=== PATIENT | male | born 1975 | race Caucasian/White ===

== ENCOUNTER → 2022-02-28 | Outpatient (CLI) | payer OTHER | END | disposition home or self-care (01) | LOC: RESCLI 04:18 | PROVIDERS: ATTEND Internal Medicine | DX: E78.2 Mixed hyperlipidemia (principal); Z00.00 Encounter for general adult medical examination without abnormal findings; Z71.89 Other specified counseling ==

== ENCOUNTER → 2022-03-23 | Outpatient (CLI) | payer OTHER | END | disposition home or self-care (01) | LOC: RESCLI 11:32 | PROVIDERS: ATTEND Family Medicine | DX: L23.7 Allergic contact dermatitis due to plants, except food (principal); E78.2 Mixed hyperlipidemia; Z79.899 Other long term (current) drug therapy; Z12.11 Encounter for screening for malignant neoplasm of colon ==

== ENCOUNTER → 2022-07-04 | Day surgery (SDC) | payer OTHER ==
[~2022-07-04] MED LIST: SIMVASTATIN20 MG PO
[2022-07-04 06:48] VITALS: BP 147/87
[2022-07-04 07:52] VITALS: BP 133/88
[2022-07-04 08:07] VITALS: BP 114/77
[2022-07-04 08:19] VITALS: BP 118/84
== END | disposition home or self-care (01) ==
LOC: SDC 06-30 08:00
PROVIDERS: ATTEND Surgery
DX: Z12.11 Encounter for screening for malignant neoplasm of colon (principal); K57.30 Diverticulosis of large intestine without perforation or abscess without bleeding; I10 Essential (primary) hypertension; E78.00 Pure hypercholesterolemia, unspecified; Z80.0 Family history of malignant neoplasm of digestive organs; Z79.899 Other long term (current) drug therapy

== ENCOUNTER → 2023-03-23 | Outpatient (CLI) | payer OTHER | END | disposition home or self-care (01) | LOC: RESCLI | PROVIDERS: ATTEND Internal Medicine | DX: E78.5 Hyperlipidemia, unspecified (principal); Z98.890 Other specified postprocedural states; Z79.899 Other long term (current) drug therapy ==

== ENCOUNTER → 2024-03-07 | Outpatient (CLI) | payer OTHER | END | disposition home or self-care (01) | LOC: RESCLI 12:50 | PROVIDERS: ATTEND Internal Medicine | DX: Z00.00 Encounter for general adult medical examination without abnormal findings (principal); E78.5 Hyperlipidemia, unspecified; F10.90 Alcohol use, unspecified, uncomplicated; E66.9 Obesity, unspecified; Z79.899 Other long term (current) drug therapy; Z98.890 Other specified postprocedural states ==

== ENCOUNTER → 2024-03-08 | Outpatient (CLI) | payer OTHER ==
[2024-03-08 07:47] LABS: BASO # 0.1 10*3/uL (0.0-0.1); EOS # 0.2 10*3/uL (0.0-0.4); EOS % 2.5 % (1.0-4.0); HEMATOCRIT 45.2 % (42.0-52.0); LYMPH # 2.1 10*3/uL (1.3-4.4); LYMPH % 34.3 % (27.0-41.0); MEAN CELL VOLUME 89.9 fl (80.0-94.0); MEAN CORPUSCULAR HGB 30.4 pg (27.0-31.0); MEAN CORPUSCULAR HGB CONC 33.8 g/dl (33.0-37.0); MEAN PLATELET VOLUME 8.9 fl (9.6-12.3); MONO # 0.6 10*3/uL (0.1-1.0); MONO % 9.4 % (3.0-9.0); NEUT # 3.1 10*3/uL (2.3-7.9); NEUT % 52.5 % (47.0-73.0); PLATELET COUNT AUTOMATED 364 10*3/uL (130-400); RED BLOOD COUNT 5.03 10*6/uL (4.50-5.90); RED CELL DISTRI WIDTH 12.5 % (0-14.5)
[2024-03-08 09:02] LABS: ALKALINE PHOSPHATASE 68 U/L (46-116); BUN 11 mg/dl (9-23); CHLORIDE 105 mmol/L (98-107); CHOLESTEROL 273 mg/dL (<200); LDL CHOLESTEROL 158 mg/dL (9-159); POTASSIUM 4.8 mmol/L (3.4-5.1); SGPT/ALT 33 U/L (5-49); TOTAL PROTEIN 7.1 gm/dL (6.0-8.0); TRIGLYCERIDES 380 mg/dl (<150)
== END | disposition home or self-care (01) ==
LOC: LAB 07:22
PROVIDERS: ATTEND Family Medicine
DX: E78.5 Hyperlipidemia, unspecified (principal); Z00.00 Encounter for general adult medical examination without abnormal findings; E66.9 Obesity, unspecified